=== PATIENT | female | born 1950 | race Caucasian/White ===

== ENCOUNTER → 2021-02-25 | Outpatient (REF) ==
[~2021-02-25] MED LIST: APIDRAVL; ASPER-FLEX10% TP; ASPIRIN 32325 MG/TAB PO; CATAPRES 0.1MG0.1 MG PO; COREG 6.256.25 MG/TA PO; COZAAR100 MG PO; HCTZ 25MG TAB25 MG PO; HCTZ 25MG25 MG PO; HUMALOG100 U/ML SQ; LASIX 20MG TABL20 MG PO; LIPITOR 40MG TA40 MG PO; LOPRESSOR 225 MG/TAB PO; LORTAB 7.5/5001 TAB PO; LOTRIMIN1% TP; LOZOL 2.5M2.5 MG/TAB PO; MASON NATURAL2000 IU PO; MAVIK PO; MOTRIN 800800 MG/TAB PO; NITROSTAT0.4 MG/TAB SL; NORCO 325 MG-7.1 TAB PO; NORVASC 10MG10 MG PO; NYSTATIN AND TR1 CRE TP; OXYCODONE HCL5 MG PO; ROXICODONE 55 MG/TAB PO; SLOW-MAG 106 MG1 ECT; SLOW-MAG 6464 MG/TAB PO; TARKA; TARKA 4 MG-2401 TER PO; TYLENOL #21 TAB PO; TYLENOL 325MG325 MG PO; VYTORIN
== END ==
LOC: ZLAB.WCH 09:21
DX: Z01.89 Encounter for other specified special examinations (principal)